=== PATIENT | male | born 1960 | race Caucasian/White ===

== ENCOUNTER → 2022-04-09 10:24 | Outpatient (BNVA) | payer BC, MEDICAID, SELFPAY | PROVIDERS: Visit Provider Nurse Practitioner Family | DX: J44.9 Chronic obstructive pulmonary disease, unspecified (principal); Z13.29 Encounter for screening for other suspected endocrine disorder; Z13.6 Encounter for screening for cardiovascular disorders; Z12.5 Encounter for screening for malignant neoplasm of prostate | CPT/HCPCS: 80053; 80061; 84443; 85025; G0103 ==

== ENCOUNTER 2022-07-09 15:10 | Outpatient (CLI) | payer MEDICAID, SELFPAY ==
--- NOTE | 2022-07-09 15:00 | USCV_ITS ---
Singer Kamlesh Age: 62 Gender: M : 1960 Exam Date: 07/09/2022 15:21 Ordering Phys: Jessy Manzo MOLDING MACHINE OPERATOR-Heraclio Technologist: MOISES [place] [facility] [place]: [place] bruit Risk Factors: Previous Vascular Surgery: Right Brachial BP: / Left Brachial BP: / Right Left Velocity (cm/s) Spectral Plaque Velocity (cm/s) Spectral Plaque Syst/Diast Broadening Syst/Diast Broadening 75.00/ 14.30 Prox CCA 109.20/ 26.50 62.40/ 11.80 Mid CCA 82.30 / 19.40 61.80/ 11.80 Distal CCA 69.70 / 19.70 63.80/ 23.00 Prox ICA 51.30 / 15.10 102.50/43.60 Mid ICA 92.00 / 28.30 65.10/ 23.00 Distal ICA 95.90 / 41.90 119.60 ECA 134.50 1.64 ICA/CCA 1.12 Antegrade Vertebral Antegrade 52.40/ 17.10 cm/s 50.50/ 17.50 cm/s Tri Subclavian Tri 118.0 122.4 0 0 FINDINGS Comparison: none available. No significant elevation of systolic or diastolic velocities. Waveforms are normal. Antegrade vertebral arteries. No significant amount of calcified plaque or intimal thickening identified. CONCLUSIONS Normal carotid doppler ultrasound. Dr. Aleyda Ortiz DO (Electronically Signed) Final Date: 09 July 2022 16:30 S
== END 2022-07-09 15:11 | disposition home or self-care (01) ==
PROVIDERS: PCP Nurse Practitioner Family; Visit Provider Nurse Practitioner Family
DX: R09.89 Other specified symptoms and signs involving the circulatory and respiratory systems (principal)
CPT/HCPCS: 93880

== ENCOUNTER 2022-07-28 09:05 | Outpatient (CLI) | payer MEDICAID, SELFPAY ==
[2022-07-28 09:30] VITALS: PULSE 87; RESP 18; O2SAT 94
[2022-07-28] MEDS: albuterol 2.5 mg/3 mL Neb INHALATION (09:30)
[2022-07-28 09:34] VITALS: PULSE 96
== END 2022-07-28 09:06 | disposition home or self-care (01) ==
PROVIDERS: PCP Nurse Practitioner Family; Visit Provider Internal Medicine Pulmonary Disease
DX: J44.9 Chronic obstructive pulmonary disease, unspecified (principal); R06.02 Shortness of breath
CPT/HCPCS: 94060; 94618; 94726; 94729; J7613

== ENCOUNTER → 2022-08-25 10:12 | Outpatient (BNVA) | payer MEDICAID, SELFPAY | PROVIDERS: PCP Nurse Practitioner Family; Visit Provider Internal Medicine Pulmonary Disease | DX: J44.9 Chronic obstructive pulmonary disease, unspecified (principal); Z71.6 Tobacco abuse counseling; F17.210 Nicotine dependence, cigarettes, uncomplicated; Z99.81 Dependence on supplemental oxygen | CPT/HCPCS: 99214 ==

== ENCOUNTER → 2022-08-25 10:12 | Outpatient (BNVA) | payer MEDICAID, SELFPAY | PROVIDERS: PCP Nurse Practitioner Family; Visit Provider Internal Medicine Pulmonary Disease | DX: R06.02 Shortness of breath (principal); T78.40XA Allergy, unspecified, initial encounter; J44.9 Chronic obstructive pulmonary disease, unspecified; F17.200 Nicotine dependence, unspecified, uncomplicated; Z71.6 Tobacco abuse counseling | CPT/HCPCS: 36415; 80048; 82785; 85378; 86003 ==

== ENCOUNTER 2022-09-10 08:21 | Outpatient (CLI) | payer MEDICAID, SELFPAY ==
[2022-09-10] MEDS: iohexol 350 mg/mL 500 mL Btl (per mL) IV (08:51)
--- NOTE | 2022-09-10 09:00 | CT_ITS ---
WS: [id number] CTA OF THE CHEST WITH PULMONARY EMBOLISM PROTOCOL TECHNIQUE: High-resolution contrast enhanced CTA of the chest with coronal and sagittal reformatted i mages with pulmonary embolism protocol. MIP images are also reviewed. CLINICAL INFORMATION: elevated D-Dimer COMPARISON: None. DLP: 362.[address] scans at [facility] use at least one of these dose optimization techniques: automated e xposure control; mA and/or kV adjustment per patient size (includes targeted exams where dose is matc hed to clinical indication); or iterative reconstruction. FINDINGS: Proximal main pulmonary arteries are normal. Normal segmental and subsegmental pulmonary arteries. No evidence of pulmonary embolus. Normal caliber thoracic aorta. Advanced chronic emphysematous changes. Partially visualized lipoma in the upper abdominal subcutaneo us soft tissues. This measures approximately 7.8 x 5.9 cm Partially visualized. Recommend further evaluation with CT abdomen pelvis. CT/CT angio chest PE protcl [id number] IMPRESSION: 1. No evidence of pulmonary embolus. 2. Advanced chronic emphysematous changes. No acute pulmonary infiltrates. No focal pneumonia or pleural fluid. 3. No mediastinal or hilar lymphadenopathy. 4. Partially visualized lipoma in the upper abdominal subcutaneous soft tissue s. This measures approximately 7.8 x 5.9 cm. Recommend further evaluation with CT abdomen pelvis.
== END 2022-09-10 08:22 | disposition home or self-care (01) ==
LOC: RAD 08:26
PROVIDERS: PCP Nurse Practitioner Family; Visit Provider Internal Medicine Pulmonary Disease
DX: R79.89 Other specified abnormal findings of blood chemistry (principal); D17.1 Benign lipomatous neoplasm of skin and subcutaneous tissue of trunk
CPT/HCPCS: 71275; Q9967

== ENCOUNTER 2022-09-17 13:59 | Outpatient (CLI) | payer MEDICAID, SELFPAY ==
--- NOTE | 2022-09-17 15:15 | USCV_ITS ---
Kamlesh Rasmussen Age: 62 Gender: M : 1960 Exam Date: 09/17/2022 14:21 Ordering Phys: Sancho Rushing MD Technologist: MIRIAN Exam Location: [facility] [place] Indication: ELEVATED D DIMER HISTORY: SHORTNESS OF BREATH WITH ELEVATED D DIMER PROCEDURES: Venous duplex imaging was performed in bilateral lower extremities. The following venous structures were evaluated: common femoral vein, profunda vein, proximal portion of the greater saphenous vein, superficial femoral vein, and the popliteal vein. In addition, the posterior tibial and peroneal trunk were evaluated. Serial compression, augmentation maneuvers, and spectral Doppler flow evaluation were performed. FINDINGS: No evidence of DVT seen in any vessel visualized at this time. CONCLUSIONS No evidence of right lower extremity DVT. No evidence of left lower extremity DVT. Phil Edwards MD (Electronically Signed) Final Date: 17 Sep 2022 17:10 S
== END 2022-09-17 14:00 | disposition home or self-care (01) ==
PROVIDERS: PCP Nurse Practitioner Family; Visit Provider Internal Medicine Pulmonary Disease
DX: R79.89 Other specified abnormal findings of blood chemistry (principal); R06.02 Shortness of breath
CPT/HCPCS: 93970

== ENCOUNTER 2022-09-29 09:10 | Outpatient (CLI) | payer MEDICAID, SELFPAY ==
[2022-09-29 09:18] VITALS: BMI 27.3
--- NOTE | 2022-09-29 09:18 | ECG_ITS ---
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 Interpretive Statements NAME OF STUDY: LEXISCAN SESTAMIBI STRESS TEST INDICATION: Dyspnea; Shortness of Breath PROCEDURE: At the baseline, the EKG revealed sinus bradycardia with poor R wave progression. The baseline heart was 60 bpm with a blood pressue of 140/74 mm of Hg Lexiscan was infused over a period of 20 seconds. A total of 0.4 milligrams of Lexiscan was infused. The stress phase was continued for a total of 5 minutes. Heart rate at the end of the stress phase was 76 bpm with a blood pressure 142/71 mm of Hg. The EKG at the peak infusion revealed no significant changes. Sestamibi was injected 20 seconds after the Lexiscan infusion. Heart rate at the end of the recovery phase was 71 bpm with a blood pressure of 142/73 mm of Hg. CONCLUSION: 1. No significant EKG changes with the LexiScan infusion 2. No LexiScan induced chest pain or cardiac arrhythmia 3. Normal blood pressure and heart rate response 4. Sestamibi/sestamibi perfusion scan pending; see separate report. Electronically Signed On 10-01-2022 7:59:31 CDT by Asher Cleveland M.D. [id number]
--- NOTE | 2022-09-29 09:18 | NMCV_ITS ---
NM enrique perf SPECT r/s* [id number] Kamlesh Rasmussen Age: 62 Gender: M : 1960 Exam Date: 09/29/2022 09:18 Ordering Phys: Sancho Rushing MD Technologist: DIEGO Cosme Exam Location: [facility] Indications: SHORTNESS OF BREATH STRESS TEST Please see separate stress test report in [facility] for full findings IMAGE PROTOCOL Rest/Stress 1 Lexiscan Day Radiopharmaceutical Dose (mCi) Administration Site Administered by Rest: Tc-99m 10.8 IV DIEGO Melendez Sestamibi Stress:Tc-99m 32.9 IV DIEGO Melendez Sestamibi Rest: 29-Sep-2022 60 Discovery 630 Stress: 29-Sep-2022 30 Discovery 630 0.4mg Lexiscan.supine position only as patient was unable to lay prone. SPECT RESULTS Technical Quality: Excellent Raw Data Analysis: Normal Image Corrections: No attenuation or motion correction applied Summed Stress Score: 7 Summed Rest Score: 9 Summed Difference Score: 0 PERFUSION FINDINGS Moderate area of minimal to moderately decreased tracer uptake in the mid anteroseptal, mid inferoseptal, apical anterior, apical septal and LV apex. No significant reversibility was noted in these regions FUNCTIONAL RESULTS (calculated via Gated SPECT) Stress Image LV EF (%): 67 Stress EDV (mL):116 TID: 1.12 Stress ESV (mL):38 FUNCTIONAL FINDINGS: Segmental wall motion analysis revealing mild diffuse hypokinesia of the septum IMPRESSIONS 1. Myocardial perfusion imaging revealing small to moderate area of persistent decreased tracer uptake no TIAs or amaurosis anteroseptal, inferoseptal and apical regions suggestive of myocardial scarring in the distribution of the left anterior descending artery versus attrition artifact. 2. Normal LV ejection fraction 67% 3. LV wall motion analysis revealing no gross wall motion abnormalities. 4. Normal LV volume Low probability for coronary ischemia, based on the above findings. No similar previous studies are available for comparison Dr Asher Cleveland MD [facility] (Electronically Signed) Final Date: 29 Sep 2022 23:01 S
[2022-09-29] MEDS: regadenoson 0.4 Mg/5 ml Syringe IVP (11:02)
[2022-09-29 11:30] VITALS: BP 142/73; PULSE 75
== END 2022-09-29 09:11 | disposition home or self-care (01) ==
LOC: CDL 09:10
PROVIDERS: PCP Nurse Practitioner Family; Visit Provider Internal Medicine Pulmonary Disease
DX: R06.02 Shortness of breath (principal); R06.00 Dyspnea, unspecified
CPT/HCPCS: 36415; 78452; 80048; 82785; 85378; 86003; 93017; 96374; A9500; J2785

== ENCOUNTER → 2022-10-21 11:38 | Outpatient (BNVA) | payer MEDICAID, SELFPAY | PROVIDERS: PCP Nurse Practitioner Family; Visit Provider Nurse Practitioner Family | DX: R06.02 Shortness of breath (principal); F17.200 Nicotine dependence, unspecified, uncomplicated; J44.9 Chronic obstructive pulmonary disease, unspecified; K42.9 Umbilical hernia without obstruction or gangrene; M79.641 Pain in right hand | CPT/HCPCS: 73130 ==

== ENCOUNTER 2022-11-04 06:31 | Outpatient (CLI) | payer MEDICAID, SELFPAY ==
--- NOTE | 2022-11-04 07:15 | US_ITS ---
WS: [id number] Exam: US abdomen limited [id number] Date/Time of Exam: 11/04/2022 6:55 AM Reason For Exam: K42.9 - Umbilical hernia without obstruction or gangrene This is a limited exam for evaluation of possible periumbilical ventral hernia. A left paraumbilical abdominal wall hernia is noted and is filled with adipose tissue. The defect in the abdominal wall measures about 2.52 cm at greatest diameter. No bowel is noted in the hernia sac. No other significant finding. US/US abdomen limited [id number] IMPRESSION: 1. Left paraumbilical abdominal wall hernia containing fat. The defect in the a bdominal wall measures about 2.52 cm at greatest diameter. No bowel or other si gnificant finding in the hernia sac.
== END 2022-11-04 06:32 | disposition home or self-care (01) ==
PROVIDERS: PCP Nurse Practitioner Family; Visit Provider Nurse Practitioner Family
DX: K42.9 Umbilical hernia without obstruction or gangrene (principal)
CPT/HCPCS: 76705

== ENCOUNTER 2022-11-07 18:28 | Emergency (ER) | payer MEDICAID, SELFPAY ==
[2022-11-07 18:29] VITALS: BP 124/82; PULSE 83; RESP 24; TEMP 37.1; O2SAT 97
--- NOTE | 2022-11-07 18:42 | ECG_ITS ---
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 Measurements Intervals [place] Rate: 85 P: 84 IA: 191 QRS: 77 QRSD: 77 T: 78 QT: 354 QTc: 423 Interpretive Statements SINUS RHYTHM INTERPRETATION BASED ON A DEFAULT AGE OF 40 YEARS No previous ECG available for comparison Electronically Signed On 11-08-2022 14:46:42 CDT by Asher Cleveland M.D. [id number]
--- NOTE | 2022-11-07 18:42 | XRR_ITS ---
PROCEDURE INFORMATION: Exam: XR Chest Exam date and time: 11/07/2022 7:07 PM Age: 62 years old Clinical indication: Pain; Chest pressure; Additional info: Cp TECHNIQUE: Imaging protocol: Radiologic exam of the chest. Views: 1 view. COMPARISON: CT angio chest PE protcl [id number] 09/10/2022 8:42 AM FINDINGS: Lungs: Unremarkable. No consolidation. Pleural spaces: Unremarkable. No pleural effusion. No pneumothorax. Heart/Mediastinum: Benign left pericardial fat pad. Bones/joints: Unremarkable. XR/XR chest 1V portable [id number] IMPRESSION: No evidence for acute cardiopulmonary disease.
--- NOTE | 2022-11-07 18:45 | W.ED.CHESTPA ---
HPI - Chest Pain General: Chief Complaint: Chest Pain Stated Complaint: CHEST PAIN; SOB Time Seen by Provider: 11/07/22 18:32 History of Present Illness: 62-year-old male with COPD on oxygen. He presents with chest discomfort. It started at 1645 when he was driving home from the store. He took a nitroglycerin at home, and some BC powder. The pain seemed to move to under his left arm. It remains there at a 3-4 out of 10. He was mildly short of breath with it. He did not get nauseated or diaphoretic he does not have a history of coronary disease. He does have COPD, but does not note increasing shortness of breath, worsening cough or sputum production. MD complaint: chest pain Pertinent past history: other Onset (ago): minute(s) Timing of current episode: constant Prior episodes: No Onset: during rest Pain location: substernal and left chest Pain radiation: none Severity: moderate Associated symptoms: Reports dyspnea; Deny abdominal pain, fever(s), nausea, palpitations or vomiting Review of Systems Const: Denies: fever(s), chills or body aches Eyes: Denies: change in vision Card: Reports: chest pain; Denies: palpitations Resp: Reports: dyspnea and non-productive cough; Denies: productive cough or wheezing GI: Denies: abdominal pain, nausea, vomiting, diarrhea or hematochezia Skin/Breast: Denies: rash Neuro: Denies: headache(s), weakness in extremities, dizziness or confusion PFSH ED PFSH: Surgical History No significant past surgical history Social History Smoking and tobacco status: current every day smoker cigarettes Packs smoked per day: 0.5 Years cigarettes smoked: 53 Second hand smoke exposure: Yes Smoking risk assessment/counseling performed?: No Alcohol intake: never Desire information about alcohol rehabilitation?: No Counseling given: No Substance/Drug Use: never Desire information about substance/drug rehabilitation?: No Counseling given: No Adopted: No Caregiver/support person: No Lives independently: Yes Household members: friend(s) Housing: House Marital status: / Number of children: 0 Highest education level completed: High School Graduate service: No Current occupational status: unemployed Physical Exam Const: COMMON NORMALS: no acute distress GENERAL APPEARANCE: cooperative and frail appearing; not ill appearing HENMT: COMMON NORMALS: normocephalic, atraumatic and Normal external nose present HEAD & SCALP: normocephalic and atraumatic FACE & SINUS: normal facial exam and face symmetric NOSE: Normal external nose present Eye: COMMON NORMALS: Equal, round and reactive pupils present and EOMs intact bilaterally PUPIL: Yes Equal, round and reactive pupils present Neck/C-Spine: GENERAL: Yes trachea midline THYROID: tender (left side) Chest: CHEST: Yes Symmetrical chest wall rise Resp: COMMON NORMALS: normal respiratory effort, No retractions, No use of accessory muscles and clear to auscultation bilaterally AUSCULTATION: clear to auscultation bilaterally Cardio: COMMON NORMALS: regular rate and regular rhythm RATE: regular rate RHYTHM: regular rhythm GI: COMMON NORMALS: Normal to inspection, nondistended, normoactive bowel sounds present Extremity: COMMON NORMALS: no pedal edema Neuro: KALEB COMA SCALE: document GCS findings [place] coma scale eye opening: Spontaneous [place] coma scale verbal response: Orientated Kaleb coma scale motor response: Obey commands [place] coma scale total score: 15 SENSORY EXAM: Yes extremities (intact) Psych: COMMON NORMALS: speech normal SPEECH: Yes normal speech Skin: COMMON NORMALS: no rashes or lesions noted GENERAL SKIN EXAM: no rashes or lesions noted Course Vital Signs: Vital signs: Vital Signs Temperature 98.7 F 11/07/22 18:29 Pulse Rate 78 11/07/22 23:57 Respiratory Rate 22 H 11/07/22 23:57 Blood Pressure 109/60 11/07/22 23:57 Pulse Oximetry 93 11/07/22 23:57 Oxygen Delivery Me thod Nasal Cannula 11/07/22 19:59 Oxygen Flow Rate 3 11/07/22 19:59 MDM - Chest Pain Medical Decision Making Vitals are normal. He has normal oxygenation on his home O2 of 98%. He is nontachycardic. Chest x-ray is negative. CBC is not remarkable. BMP is not remarkable. EKG shows a sinus rhythm with normal axis and intervals. Rate is 85. There are no acute ST changes. Troponin 2-hour delta is normal. BNP is normal at 36. Pain is left-sided under his arm. He is given Toradol and dexamethasone for this after morphine. He will be allowed discharge home to return for new or worsening symptoms. Lab Data 11/07/22 18:58 11/07/22 18:58 Radiology Impressions Chest X-Ray 11/07/22 18:42 IMPRESSION: No evidence for acute cardiopulmonary disease. Laboratory Results WBC 10.2 10^3/uL (4.0-10.0) H 11/07/22 18:58 RBC 4.04 10^6/uL (4.1-5.3) L 11/07/22 18:58 Hgb 12.2 g/dL (11.7-16.6) 11/07/22 18:58 Hct 38.6 % (42.0-52.0) L 11/07/22 18:58 MCV 95.5 fl (80-94) H 11/07/22 18:58 MCH 30.2 pg (28.0-34.0) 11/07/22 18:58 MCHC 31.6 g/dL (30.0-36.0) 11/07/22 18:58 RDW 13.3 % (12.1-15.1) 11/07/22 18:58 Plt Count 220 10^3/cmm (130-400) 11/07/22 18:58 MPV 9.1 fL (7.4-10.4) 11/07/22 18:58 Neut % (Auto) 63.4 % 11/07/22 18:58 Lymph % (Auto) 28.6 % 11/07/22 18:58 [place] % (Auto) 5.5 % 11/07/22 18:58 Eos % (Auto) 1.6 % 11/07/22 18:58 Baso % (Auto) 0.5 % 11/07/22 18:58 Neut # (Auto) 6.47 10^3/uL (1.8-7.7) 11/07/22 18:58 Lymph # (Auto) 2.9 10^3/uL (0.8-4.8) 11/07/22 18:58 [place] # (Auto) 0.6 10^3/uL (0.2-0.9) 11/07/22 18:58 Eos # (Auto) 0.2 10^3/uL (0.0-0.8) 11/07/22 18:58 Baso # (Auto) 0.1 10^3/uL (0.0-0.1) 11/07/22 18:58 Nucleated RBC % (auto) 0 % 11/07/22 18:58 Nucleated RBCs # 0.0 /100WBC 11/07/22 18:58 Sodium 134 mmol/L (136-145) L 11/07/22 18:58 Potassium 4.1 mmol/L (3.5-5.1) 11/07/22 18:58 Chloride 98 mmol/L (98-107) 11/07/22 18:58 Carbon Dioxide 31 mmol/L (22-29) H 11/07/22 18:58 Anion Gap 9.1 (5-19) 11/07/22 18:58 BUN 14 mg/dL (8-23) 11/07/22 18:58 Creatinine 0.7 mg/dL (0.7-1.2) 11/07/22 18:58 GFR Calculation 114.3 mL/min (90-130) 11/07/22 18:58 Glucose 88 mg/dL (65-115) 11/07/22 18:58 Calculated Osmolality 278 mOsm/kg (285-295) L 11/07/22 18:58 Calcium 8.8 mg/dL (8.5-10.5) 11/07/22 18:58 Total Bilirubin 0.3 mg/dL (0.15-1.2) 11/07/22 18:58 AST 11 U/L (0-40) 11/07/22 18:58 ALT 10 U/L (0-41) 11/07/22 18:58 Alkaline Phosphatase 71 U/L (40-130) 11/07/22 18:58 Troponin T Baseline 10 ng/L (0-15) 11/07/22 18:58 Troponin T 120 Minute 9.24 ng/L (0-15) 11/07/22 21:03 Delta Troponin T -0.76 ABS# (0-10) L 11/07/22 21:03 NT-Pro-B Natriuret Pep 36 pg/mL (0-125) 11/07/22 18:58 Total Protein 6.7 g/dL (6.6-8.7) 11/07/22 18:58 Albumin 4.1 g/dL (3.5-5.2) 11/07/22 18:58 Globulin 2.6 g/dL (1.3-4.6) 11/07/22 18:58 Discharge Plan Discharge Patient Disposition: Home Clinical Impression: Chest pain Condition: Stable Prescriptions: No Action Combivent Respimat 20-100 mcg/actuation mist 1 puff inhalation Q6H PRN (Reason: shortness of breath or wheezing) Qty: 4 3RF prednisone 20 mg tablet 20 mg PO BID Qty: 10 0RF fluoxetine 40 mg capsule 40 mg PO DAILY Qty: 30 5RF buspirone 15 mg tablet 15 mg PO BID PRN (Reason: anxiety) Qty: 60 0RF fluticasone propionate [Flovent HFA] 110 mcg/actuation HFA aerosol inhaler 2 puff inhalation BID PRN (Reason: shortness of breath or wheezing) Qty: 12 5RF Anoro Ellipta 62.5-25 mcg/actuation blister with device 1 inh inhalation DAILY Qty: 60 5RF nitroglycerin 0.4 mg tablet, sublingual 0.4 mg sublingual Q5M PRN (Reason: chest pain) Qty: 25 0RF Rx Instructions: do not exceed 3 doses per episode montelukast 10 mg tablet 10 mg PO DAILY Qty: 90 3RF atorvastatin 20 mg tablet 20 mg PO DAILY Qty: 30 5RF pantoprazole 40 mg tablet,delayed release (DR/EC) 40 mg PO DAILY Qty: 30 5RF benzonatate 200 mg capsule 200 mg PO TID PRN (Reason: cough) Qty: 90 5RF Discharge Orders: Discharge ED (Routine); Ordered 11/07/22 Ordered By: Lavelle Leigh Referrals: Jessy Manzo FNP-C [Primary Care Provider] - Patient Instructions: Chest Pain (ED), Opioid Safety, Pain Management Activity Restrictions/Additional Instructions: Return to the emergency room for worsening pain, worsening shortness of breath, fever, other new symptoms. See your doctor next week. Coding Level of Care Code ED Draw Machine Operator for Melba Pathak
[2022-11-07 19:00] VITALS: PULSE 74; O2SAT 97
[2022-11-07 19:15] VITALS: RESP 18
[2022-11-07] MEDS: ondansetron 2 mg/ML SDV 2 mL 4 MG IVP (19:15)
[2022-11-07] MEDS: morphine 4 mg/mL SDV 1 mL IVP ×2 (19:15→20:56)
[2022-11-07 19:21] LABS: Basophils # 0.1 10^3/uL (0.0-0.1); Basophils % 0.5 %; Eosinophils # 0.2 10^3/uL (0.0-0.8); Eosinophils % 1.6 %; Hematocrit 38.6 % (42.0-52.0); Hemoglobin 12.2 g/dL (11.7-16.6); Lymphocytes # 2.9 10^3/uL (0.8-4.8); Lymphocytes % 28.6 %; Mean Corpuscular HGB Conc 31.6 g/dL (30.0-36.0); Mean Corpuscular Hemoglobin 30.2 pg (28.0-34.0); Mean Corpuscular Volume 95.5 fl (80-94); Mean Platelet Volume 9.1 fL (7.4-10.4); Monocytes # 0.6 10^3/uL (0.2-0.9); Monocytes % 5.5 %; Neutrophils # 6.47 10^3/uL (1.8-7.7); Neutrophils % 63.4 %; Nucleated Red Blood Cells % 0 %; Platelet Count 220 10^3/cmm (130-400); Red Blood Count 4.04 10^6/uL (4.1-5.3); Red Cell Distribution Width 13.3 % (12.1-15.1); White Blood Count 10.2 10^3/uL (4.0-10.0)
[2022-11-07 19:42] LABS: Troponin(5th) Baseline 10 ng/L (0-15)
[2022-11-07 19:47] LABS: Alanine Aminotransferase 10 U/L (0-41); Albumin Level 4.1 g/dL (3.5-5.2); Alkaline Phosphatase 71 U/L (40-130); Anion Gap 9.1 (5-19); Aspartate Amino Transferase 11 U/L (0-40); Blood Urea Nitrogen 14 mg/dL (8-23); Calcium 8.8 mg/dL (8.5-10.5); Carbon Dioxide 31 mmol/L (22-29); Chloride 98 mmol/L (98-107); Globulin 2.6 g/dL (1.3-4.6); Glomerular Filtration Rate 114.3 mL/min (90-130); Glucose 88 mg/dL (65-115); NT Pro B Type Natriuretic Pept 36 pg/mL (0-125); Osmolality Calculated 278 mOsm/kg (285-295); Potassium 4.1 mmol/L (3.5-5.1); Sodium 134 mmol/L (136-145); Total Bilirubin 0.3 mg/dL (0.15-1.2); Total Protein 6.7 g/dL (6.6-8.7)
[2022-11-07 19:59] VITALS: BP 125/71; PULSE 61; O2SAT 98
[2022-11-07 20:56] VITALS: RESP 18
[2022-11-07 21:26] LABS: Troponin 5 2HR 9.24 ng/L (0-15)
[2022-11-07 21:41] LABS: Troponin 5 2HR Delta -0.76 ABS# (0-10)
[2022-11-07] MEDS: dexamethasone 4 mg/mL INJ 8 MG IVP (22:28)
[2022-11-07] MEDS: ketorolac 30 mg/mL INJ 15 MG IVP (22:28)
[2022-11-07 23:57] VITALS: BP 109/60; PULSE 78; RESP 22; O2SAT 93
== END 2022-11-07 23:59 | disposition home or self-care (01) ==
PROVIDERS: Emergency Provider Emergency Medicine; PCP Nurse Practitioner Family
DX: R07.9 Chest pain, unspecified (principal); Z79.899 Other long term (current) drug therapy
CPT/HCPCS: 36415; 71045; 80053; 83880; 84484; 85025; 93005; 96374; 96375; 96376; 99285; J1100; J1885; J2270; J2405

== ENCOUNTER → 2022-11-12 08:20 | Outpatient (BNVA) | payer MEDICAID, SELFPAY | PROVIDERS: PCP Nurse Practitioner Family; Visit Provider Nurse Practitioner Family | DX: J44.9 Chronic obstructive pulmonary disease, unspecified (principal); Z79.899 Other long term (current) drug therapy | CPT/HCPCS: 80053; 80061; 84443; 85025 ==

== ENCOUNTER → 2022-11-20 09:09 | Outpatient (BNVA) | payer MEDICAID, SELFPAY | PROVIDERS: PCP Nurse Practitioner Family; Visit Provider Nurse Practitioner Family | DX: K92.1 Melena (principal) | CPT/HCPCS: 82274 ==

== ENCOUNTER → 2022-12-10 14:11 | Outpatient (BNVA) | payer MEDICAID, SELFPAY | PROVIDERS: PCP Nurse Practitioner Family; Visit Provider Internal Medicine Pulmonary Disease | DX: J44.9 Chronic obstructive pulmonary disease, unspecified (principal); Z71.6 Tobacco abuse counseling; F17.210 Nicotine dependence, cigarettes, uncomplicated; Z57.2 Occupational exposure to dust; Z99.81 Dependence on supplemental oxygen | CPT/HCPCS: 99214 ==

== ENCOUNTER → 2022-12-22 08:15 | Outpatient (BNVA) | payer MEDICAID, SELFPAY | PROVIDERS: PCP Nurse Practitioner Family; Visit Provider Surgery | DX: K42.0 Umbilical hernia with obstruction, without gangrene | CPT/HCPCS: 99203 ==

== ENCOUNTER → 2022-12-23 10:39 | Outpatient (BNVA) | payer MEDICAID, SELFPAY | PROVIDERS: PCP Nurse Practitioner Family; Visit Provider Nurse Practitioner Family | DX: R63.4 Abnormal weight loss (principal); D17.1 Benign lipomatous neoplasm of skin and subcutaneous tissue of trunk; K42.0 Umbilical hernia with obstruction, without gangrene; M25.511 Pain in right shoulder | CPT/HCPCS: 73030 ==

== ENCOUNTER → 2022-12-28 13:17 | Outpatient (BNVA) | payer MEDICAID, SELFPAY | PROVIDERS: PCP Nurse Practitioner Family; Visit Provider Internal Medicine | DX: R07.9 Chest pain, unspecified (principal); R06.02 Shortness of breath; Z01.818 Encounter for other preprocedural examination | CPT/HCPCS: 93005; 99204 ==

== ENCOUNTER 2023-01-05 08:55 | Outpatient (CLI) | payer MEDICAID, SELFPAY ==
[2023-01-05] MEDS: iohexol 350 mg/mL 500 mL Btl (per mL) PO (09:55)
--- NOTE | 2023-01-05 10:00 | CT_ITS ---
WS: [id number] CT ABDOMEN AND PELVIS WITH CONTRAST HISTORY: R63.4 - Abnormal weight loss TECHNIQUE: Imaging performed of the abdomen and pelvis with IV contrast. Single phase imaging of the abdomen. Coronal and sagittal reformats are submitted. All CT scans at [facility] use at una st one of these dose optimization techniques: automated exposure control; mA and/or kV adjustment per patient size (includes targeted exams where dose is matched to clinical indication); or iterative re construction. IV CONTRAST: Omnipaque 350; 100 mL IV. Oral contrast: Yes. DLP: 297.11 mGy.cm COMPARISON: None available. Lower thorax: Hyperinflated lung bases. Heart is normal size. No hiatal hernia. Liver/biliary system: Normal size with no intrahepatic dilatation. Gallbladder: Focal hepatic steatosis along the falciform ligament. No gallstones or wall thickening. No pericholecystic fluid. Pancreas: Normal size pancreas and pancreatic duct. No adjacent inflammation. Spleen: Normal size spleen. No mass or infarct. Adrenal glands: Normal. Right kidney: Normal kidney. 8 mm cyst lower pole. No solid mass or obstruction. Left kidney: Normal. Aorta: Mild atherosclerosis with no aneurysm. Lymphadenopathy: None. Free fluid: None. GI tract: Prior appendectomy. Normal stomach and small bowel. Tortuous overlapping loops of colon fro m chronic constipation. No wall thickening. No significant diverticular disease. Abdominal wall: Ventral abdominal wall defect measures 2.1 cm. Large amount of herniated omental fat through the midline defect. Pelvis: No free fluid or adenopathy within the pelvis. Well distended urinary bladder. There is an en hancing lesion in the posterior urinary bladder measuring 2.0 x 0.5 cm. Suspicious for uroepithelial neoplasm. Bones: Unremarkable. IMPRESSION: 1. No acute abdomen or pelvic abnormalities. 2. 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 Recommen d urology consultation and cystoscopy. 3. Large ventral abdominal wall hernia containing omental fat. 4. Prior appendectomy. 5. No ascites.
[2023-01-05] MEDS: iohexol 350 mg/mL 500 mL Btl (per mL) IV (10:09)
== END 2023-01-05 08:56 | disposition home or self-care (01) ==
PROVIDERS: PCP Nurse Practitioner Family; Visit Provider Nurse Practitioner Family
DX: R63.4 Abnormal weight loss (principal); D17.1 Benign lipomatous neoplasm of skin and subcutaneous tissue of trunk; K42.0 Umbilical hernia with obstruction, without gangrene; N32.9 Bladder disorder, unspecified; K43.9 Ventral hernia without obstruction or gangrene; Z90.89 Acquired absence of other organs
CPT/HCPCS: 74177; Q9967

== ENCOUNTER 2023-01-08 08:03 | Outpatient (CLI) | payer MEDICAID, SELFPAY ==
--- NOTE | 2023-01-08 08:30 | USCV_ITS ---
Singer Kamlesh Age: 62 Gender: M : 1960 Exam Date: 01/08/2023 08:28 Ordering Phys: Augustus Jain M.D ([email or web address]) Technologist: Exam Location: [facility] [place] Indication: pre op BP: 120 / 76 HR: 54 Rhythm: Sinus Technical Quality: Adequate MEASUREMENTS (Male / Female) Normal Values 2D ECHO LV Diastolic Diameter PLAX 4.7 cm 4.2 - 5.9 / 3.9 - 5.3 cm LV Systolic Diameter PLAX 2.8 cm IVS Diastolic Thickness 1.3 cm 0.6 - 1.0 / 0.6 - 0.9 cm IVS Systolic Thickness 1.7 cm LVPW Diastolic Thickness 1.1 cm 0.6 - 1.0 / 0.6 - 0.9 cm LVPW Systolic Thickness 1.6 cm LVOT Diameter 2.1 cm LV Ejection Fraction 2D Teich 62.5 % LV Ejection Fraction MOD 2C 63.2 % LV Ejection Fraction 2C AL 62.7 % LA Diameter 3.7 cm IVC Diameter 1.1 cm M-MODE Aortic Annulus Diameter 3.3 cm LA Ao Ratio MM 1.1 MV E Point Septal Separation 1.1 cm DOPPLER AV Peak Velocity 158.0 cm/s LVOT Peak Velocity 98.0 cm/s AV Area Cont Eq vti 2.3 cm squared AV Area Cont Eq pk 2.1 cm squared MV Area PHT 4.2 cm squared Mitral E to A Ratio 0.9 MV E' Velocity 43.0 cm/s Mitral E to MV E' Ratio 9.9 Mitral E to LV E' Lateral Ratio 8.8 Mitral E to LV E' Septal Ratio 11.5 TR Peak Velocity 196.0 cm/s TR Peak Gradient 15.4 mmHg TV Peak E Velocity 62.0 cm/s Right Atrial Pressure 3.0 mmHg Pulmonary Artery Systolic Pressu 18.4 mmHg RV Acceleration Time 0.1 s FINDINGS Left Ventricle Left ventricle is normal in size. LV systolic function is normal with EF of 60 to 65%. No regional wall motion abnormalities are seen. Right Ventricle Normal in size and function Right Atrium Normal in size Left Atrium Normal in size Mitral Valve Structurally normal mitral valve.Trace mitral regurgitation. Aortic Valve Structurally normal aortic valve. No significant stenosis or regurgitation. Tricuspid Valve Trace tricuspid regurgitation. Insufficient TR jet to calculate RVSP. Pulmonic Valve Not well-visualized Pericardium Normal Aorta Normal in size IVC Appears to be normal CONCLUSIONS LV systolic function is nromal with EF of 60-65% Trace mitral regurgitation Trace tricuspid regurgitation No comparison studies are available. Augustus Jain MD (Electronically Signed) Final Date: 22 January 2023 11:16 S
== END 2023-01-08 08:04 | disposition home or self-care (01) ==
LOC: RAD 08:04
PROVIDERS: PCP Nurse Practitioner Family; Visit Provider Internal Medicine
DX: I08.1 Rheumatic disorders of both mitral and tricuspid valves (principal); R06.02 Shortness of breath; R07.9 Chest pain, unspecified
CPT/HCPCS: 93306